=== PATIENT | female | born 1980 | race Two or more races ===

== ENCOUNTER 2021-09-27 15:10 | Emergency (ER) | payer OTHER ==
[~2021-09-27] VITALS: Ht 170.2 cm; Wt 86.2 kg
[~2021-09-27 15:10] MED LIST: NOVOLOG100 U/ML; SYNTHROID100 MCG; SYNTHROID200 MCG
[2021-09-27] MEDS ORDERED: ZITHROMAX500 MG PO (19:17)
[2021-09-27] MEDS ORDERED: TUSNEL LIQUID178 ML PO (19:17)
[2021-09-27] MEDS ORDERED: DOLOGEN CAPLET1 EACH PO (19:17)
== END 2021-09-27 19:24 | disposition home or self-care (01) ==
LOC: ER 15:10
DX: U07.1 COVID-19 (principal)

== ENCOUNTER 2022-09-06 11:32 | Emergency (ER) | payer OTHER ==
[~2022-09-06] VITALS: Ht 170.2 cm; Wt 83.9 kg
[~2022-09-06 11:32] MED LIST changes: +DOLOGEN CAPLET1 EACH PO; +TUSNEL LIQUID178 ML PO; +ZITHROMAX500 MG PO
[2022-09-06] MEDS ORDERED: ZITHROMAX500 MG PO (16:17)
== END 2022-09-06 16:25 | disposition home or self-care (01) ==
LOC: ER 11:32
DX: B34.9 Viral infection, unspecified (principal); J02.9 Acute pharyngitis, unspecified; Z20.822 Contact with and (suspected) exposure to COVID-19